=== PATIENT | female | born 1960 | race Caucasian/White ===

== ENCOUNTER → 2020-06-20 13:23 | Outpatient (CLI) | payer OTHER, SELFPAY ==
--- NOTE | ~2020-06-20 | MM_ITS ---
EXAMINATION: MM screening christy BI w jos HISTORY: Screening mammogram, family history of breast cancer in her mother. TECHNIQUE: Craniocaudal and mediolateral oblique 3-D tomosynthesis images were obtained and synthetic 2-D images were generated. CAD analysis was submitted and interpreted. COMPARISON: 08/02/2018, 07/26/2018, 12/06/2016 BREAST PARENCHYMAL COMPOSITION: There are scattered areas of fibroglandular density. FINDINGS: There are multiple stable right breast masses, previously characterized as benign. There is no evidence of suspicious mass, calcification, or architectural distortion to suggest malignancy in either breast. There has been no suspicious interval change. IMPRESSION: 1. No mammographic evidence of malignancy. 2. Recommend routine screening mammography in one year. BI-RADS Category 2: Benign finding(s). Reviewed, dictated and finalized at location A. ER [employer] P[facility]ER
== END ==
PROVIDERS: Visit Provider Obstetrics & Gynecology
DX: Z12.31 Encounter for screening mammogram for malignant neoplasm of breast (principal)
CPT/HCPCS: 77063; 77067

== ENCOUNTER 2021-10-05 00:59 | Day surgery (SDC) | payer OTHER, SELFPAY ==
[2021-10-02 12:14] VITALS: BMI 30.4
[2021-10-05] VITALS (11 sets, daily range): BP systolic 115–165; BP diastolic 58–91; PULSE 66–96; RESP 7–20; TEMP 36.4; O2SAT 91–100; BMI 31.3
--- NOTE | 2021-10-05 08:00 | ECHO_ITS ---
MARINA Report Signed Patient: Katy Meadows MR#: [id number] : 1960 Acct:[id number] Age/Sex: 61 / F ADM Date: 2 Loc: [facility] ER Attending Dr: James Rey MD cc: James Rey MD; [employer] SECURITY CONSULTANT PHYSICIAN~ MARINA TransEsophageal Echocardiogram Date of procedure: 10/05/21 Procedure Type: Multiplanar transesophageal echocardiography with color-flow pulse-wave Doppler Agitated saline study Moderate Sedation Diagnosis: Mitral valve prolapse and mitral regurgitation Indications: Mitral valve prolapse and mitral regurgitation Image Quality: Good Findings: After discussing the risks, benefits and alternatives of the procedure patient agreeable via verbal and written informed consent. Risks discussed included esophageal rupture perforation, sore throat, bleeding, pain, infection, adverse reaction anesthesia. After establishing continuous telemetry monitoring and serial blood pressure assessments and pulse oxygenation, procedure was initiated. Procedure start time 8:41 a.m. Procedure stop time 8:54 a.m. Medications used: Hurricaine spray to the hypopharynx x2. Total 3 mg of Versed and 75 mcg of fentanyl given in divided dosages. Medication were administered and patient was monitored by Madisyn Constantino Complications: None blood loss: None Findings: Normal left ventricular size and function ejection fraction 65%. Normal right ventricular size and function. Normal right atrial size. Mild left atrial enlargement. Atrial septum is intact without agitated saline or color flow evidence of shunting. Left atrial appendage is normal without mass or thrombus velocities of up to 70 centimeters/second. Aortic root is normal in size. No significant atherosclerotic disease. Aortic valve is trileaflet with trivial aortic insufficiency. Tricuspid valve is normal with at most mild tricuspid regurgitation. Pulmonic valve grossly normal. The mitral valve has significant prolapse of the posterior leaflet. Probably P2 although 3D marina would be beneficial for determination. There is significant mitral regurgitation which is likely severe and at least moderate to severe which is highly eccentric which wraps the wall of the left atrium. It is anteriorly directed. There is no pericardial effusion. Conclusions: 1. Normal left ventricular size and function 2. Severe posterior leaflet prolapse with significant mitral regurgitation which is likely severe. 3. Mild left atrial enlargement 4. Intact atrial septum 5. Moderate sedation Recommendations: Patient is completely asymptomatic. She does have significant prolapse of the posterior leaflet. Likely P2 but 3D marina would be of some benefit for determination of which segment. Mitral regurgitation is highly eccentric. It wraps the wall of the left atrium and is directed anteriorly. Will discuss with the patient regarding possible continued observation given asymptomatic status and normal left ventricle function versus referral to valve Clinic for further workup, evaluation and maintenance follow-up. This dictation may have been done utilizing a voice recognition system. Attempts have been made to correct errors. However, there may be uncorrected grammatical, spelling, and recognition errors present. Report Initialized date/time: James Rey MD 10/05/21 / 0857 Electronically signed by: James Rey MD 10/05/21 0904 [facility]
--- NOTE | 2021-10-05 08:24 | WPDMODSED ---
Moderate Sedation Note-Pt Data Patient Data Diagnosis: Mitral regurgitation Present Complaint: Mitral regurgitation Procedure to be performed/Plan: Multiplanar transesophageal echocardiography color pulse-wave Agitated saline study Moderate sedation Allergies Allergy/AdvReac Type Severity Reaction Status Date / Time No Known Allergies Allergy Verified 10/05/21 07:58 Home Medications Medication Instructions Recorded Confirmed Type desvenlafaxine 50 mg 50 mg PO DAILY 07/31/21 10/05/21 History tablet,extended release 24 hr magnesium 250 mg tablet 250 mg PO DAILY 07/31/21 10/05/21 History losartan 25 mg tablet 12.5 mg PO DAILY 10/02/21 10/05/21 History lysine 1,000 mg tablet 1,000 mg PO DAILY PRN canker sore 10/02/21 10/05/21 History Sedation/Anesthesia: No previous sedation/anesthesia problems (including family history). [facility] Family History Family History Mother Breast cancer Grandparent Breast cancer Father Heart disease Social History Social History Smoking status: Never smoker Second hand tobacco smoke exposure: No Alcohol intake: never Substance use: never Substance use type: does not use Living arrangements: with family Additional living arrangements comments: lives with and 3 children Gender identity (if verbalized by the patient): Female Sexual Orientation (if Verbalized by the Patient): Straight or Heterosexual Spiritual care concerns: No Agree to blood products: Yes Mod Sed Physical Exam Physical Exam Pre Procedural Exam: Normal: Appearance, Eyes, Ears, Nose, Neck, Throat, Airway, Lungs, Heart Size, Heart Rate, Heart Rhythm, Neuro Exam, Abdomen, Extremities and Skin Hours since solid foods: 12 Hours since liquid intake: 12 Mallampati Classification: class II Internal Medicine - PN: Obj Da Vital Signs Vital Signs: Vital Signs - 24 hr 10/05/21 08:01 Temperature 36.4 C L Pulse Rate 84 Respiratory Rate 20 Blood Pressure 145/91 H Pulse Oximetry 93 Oxygen Delivery Room Air ASA Classification/Sedation ASA Classification/Sedation ASA Class: II Emergent: No Risks: Risks, benefits and alternatives explained and patient/family accepted plan for sedation. Patient re-evaluated immediately prior to sedation.
--- NOTE | 2021-10-05 08:55 | WPDTEECHO ---
MARINA TransEsophageal Echocardiogram Date of procedure: 10/05/21 Procedure Type: Multiplanar transesophageal echocardiography with color-flow pulse-wave Doppler Agitated saline study Moderate Sedation Diagnosis: Mitral valve prolapse and mitral regurgitation Indications: Mitral valve prolapse and mitral regurgitation Image Quality: Good Findings: After discussing the risks, benefits and alternatives of the procedure patient agreeable via verbal and written informed consent. Risks discussed included esophageal rupture perforation, sore throat, bleeding, pain, infection, adverse reaction anesthesia. After establishing continuous telemetry monitoring and serial blood pressure assessments and pulse oxygenation, procedure was initiated. Procedure start time 8:41 a.m. Procedure stop time 8:54 a.m. Medications used: Hurricaine spray to the hypopharynx x2. Total 3 mg of Versed and 75 mcg of fentanyl given in divided dosages. Medication were administered and patient was monitored by Madisyn Constantino Complications: None blood loss: None Findings: Normal left ventricular size and function ejection fraction 65%. Normal right ventricular size and function. Normal right atrial size. Mild left atrial enlargement. Atrial septum is intact without agitated saline or color flow evidence of shunting. Left atrial appendage is normal without mass or thrombus velocities of up to 70 centimeters/second. Aortic root is normal in size. No significant atherosclerotic disease. Aortic valve is trileaflet with trivial aortic insufficiency. Tricuspid valve is normal with at most mild tricuspid regurgitation. Pulmonic valve grossly normal. The mitral valve has significant prolapse of the posterior leaflet. Probably P2 although 3D marina would be beneficial for determination. There is significant mitral regurgitation which is likely severe and at least moderate to severe which is highly eccentric which wraps the wall of the left atrium. It is anteriorly directed. There is no pericardial effusion. Conclusions: 1. Normal left ventricular size and function 2. Severe posterior leaflet prolapse with significant mitral regurgitation which is likely severe. 3. Mild left atrial enlargement 4. Intact atrial septum 5. Moderate sedation Recommendations: Patient is completely asymptomatic. She does have significant prolapse of the posterior leaflet. Likely P2 but 3D marina would be of some benefit for determination of which segment. Mitral regurgitation is highly eccentric. It wraps the wall of the left atrium and is directed anteriorly. Will discuss with the patient regarding possible continued observation given asymptomatic status and normal left ventricle function versus referral to valve Clinic for further workup, evaluation and maintenance follow-up.
--- NOTE | 2021-10-05 10:02 | SUR.PHASEII ---
Discharge instructions read and handout given to pt and spouse. Pt and spouse states understanding.
== END 2021-10-05 10:18 | disposition home or self-care (01) ==
PROVIDERS: Visit Provider Internal Medicine Cardiovascular Disease
PROC: (CPT 93312; principal; 2021-10-05 08:30)
DX: I34.0 Nonrheumatic mitral (valve) insufficiency (principal); I34.1 Nonrheumatic mitral (valve) prolapse; F41.8 Other specified anxiety disorders; E66.9 Obesity, unspecified; Z68.31 Body mass index [BMI] 31.0-31.9, adult
CPT/HCPCS: 93312; 93320; 93325; A9270; J2250; J3010; J7040

== ENCOUNTER 2022-03-11 16:30 | Outpatient (RCR) | payer OTHER, SELFPAY | END 2022-03-22 18:57 | disposition home or self-care (01) | LOC: ANHCPREHAB 16:30 | PROVIDERS: PCP Family Medicine Adolescent Medicine; Visit Provider Nurse Practitioner Adult Health | DX: Z95.2 Presence of prosthetic heart valve (principal) | CPT/HCPCS: 93798 ==

== ENCOUNTER → 2022-09-09 09:47 | Outpatient (CLI) | payer OTHER, SELFPAY ==
--- NOTE | ~2022-09-09 | MM_ITS ---
EXAMINATION: MM screening christy BI w jos HISTORY: Screening mammogram, family history of breast cancer in her mother and daughter. TECHNIQUE: Craniocaudal and mediolateral oblique 3-D tomosynthesis images were obtained and synthetic 2-D images were generated. CAD analysis was submitted and interpreted. COMPARISON: 06/20/2020, 08/02/2018, 07/26/2018 BREAST PARENCHYMAL COMPOSITION: There are scattered areas of fibroglandular density. FINDINGS: RIGHT BREAST: There is a possible mass in the middle third of the upper outer quadrant of the breast best appreciated 9 cm from the nipple on mediolateral tomosynthesis image 16/77. Asymmetry and areas of mild fat necrosis in the far posterior aspect of the breast are consistent with history of interva l cardiac surgery. LEFT BREAST: No suspicious mass, calcification, or architectural distortion are identified to suggest malignancy. There has been no suspicious interval change. IMPRESSION: 1. Possible right breast mass. 2. Additional mammographic views and possible breast ultrasound are recommended. BI-RADS Category 0: Incomplete: Needs additional imaging evaluation. Reviewed, dictated and finalized at location A. IMPRESSION: 1. Possible right breast mass. 2. Additional mammographic views and possible breast ultrasound are recommended . BI-RADS Category 0: Incomplete: Needs additional imaging evaluation.
== END ==
PROVIDERS: PCP Family Medicine Adolescent Medicine; Visit Provider Nurse Practitioner
DX: Z12.31 Encounter for screening mammogram for malignant neoplasm of breast (principal); R92.8 Other abnormal and inconclusive findings on diagnostic imaging of breast
CPT/HCPCS: 77063; 77067

== ENCOUNTER → 2022-10-05 07:52 | Outpatient (CLI) | payer OTHER, SELFPAY ==
--- NOTE | ~2022-10-05 | MMUS_ITS ---
EXAMINATION: MM diagnostic christy RT w jos, US breast RT limited HISTORY: Possible right breast mass, middle third of upper outer quadrant reported on 09/09/2022 bilat eral screening mammogram TECHNIQUE: Additional 3-D tomosynthesis images of the right breast were performed and synthetic 2-D i mages were generated. CAD analysis was submitted and interpreted. High resolution right subareolar an d upper outer and upper inner quadrant breast ultrasound was performed. COMPARISON: 09/04/2021 bilateral screening mammogram FINDINGS: MAMMOGRAPHIC FINDINGS: There is a circumscribed low-density approximately 5.6 x 8.3 mm opacity in the upper mid right breast , with lobular outline. Approximately 5.2 x 7 mm circumscribed low-density opacity is noted in the right subareolar area. ULTRASOUND: Prominent ducts are noted in the subareolar area. No subareolar cyst suspicious mass or shadowing is evident. At 12:00 4 cm from the nipple corresponding to the mammographic finding is an approximately 5 x 8 mm multi septated cyst, without internal vascularity or posterior shadowing. There is through-transmissi on. IMPRESSION: 1. Benign findings 2. Routine annual mammographic screening is recommended BI-RADS Category 2: Benign finding(s). Reviewed, dictated and finalized at location A. IMPRESSION: 1. Benign findings 2. Routine annual mammographic screening is recommended BI-RADS Category 2: Benign finding(s).
== END ==
PROVIDERS: PCP Family Medicine Adolescent Medicine; Visit Provider Obstetrics & Gynecology Gynecology
DX: R92.8 Other abnormal and inconclusive findings on diagnostic imaging of breast (principal)
CPT/HCPCS: 76642; 77061; 77065; G0279

== ENCOUNTER 2025-03-14 14:23 | Outpatient (CLI) | payer OTHER, SELFPAY ==
--- NOTE | ~2025-03-14 | MM_ITS ---
EXAMINATION: MM screening christy BI w jos HISTORY: Screening TECHNIQUE: Craniocaudal and mediolateral oblique 3-D tomosynthesis images were obtained and synthetic 2-D images were generated. CAD analysis was submitted and interpreted. COMPARISON: Comparison to multiple prior studies sequentially, with oldest reviewed study dated 12/06/2016. BREAST PARENCHYMAL COMPOSITION: Not dense: There are scattered areas of fibroglandular density. FINDINGS: There is a new mass in the lower inner quadrant of the right breast, middle third. The left breast is stable without evidence for malignancy. IMPRESSION: 1. New small right breast mass lower inner quadrant, middle third. 2. Additional mammographic views and possible breast ultrasound are recommended. BI-RADS Category 0: Incomplete: Needs additional imaging evaluation. Reviewed, dictated and finalized at location O. AL AMALGAM PROCESSOR IMPRESSION: 1. New small right breast mass lower inner quadrant, middle third. 2. Additional mammographic views and possible breast ultrasound are recommended . BI-RADS Category 0: Incomplete: Needs additional imaging evaluation.
--- OUTSIDE RECORDS SUMMARY | 2025-03-14 17:31 | XMS_ITS | Clinical Summary ---
Author Organization [facility] [address] Address [address] [place] [address] Care Team Providers Care French Pastry Cook Name Role Phone Anthony Martínez MD Primary Care Prov ider James Rye MD Unavailable [phone] Allergies No known active allergies Medications desvenlafaxine ER (PRISTIQ) 50 mg 24 hr tablet Take 1 tablet (50 mg total) by mouth Active magnesium oxide (MAG-OX) 250 mg (150.8 mg elemental) tabletIndication s:hypomagnesemia Take 1 tablet (250 mg total) by mouth daily Active aspirin 81 mg enteric coated tablet Take 1 tablet (81 mg total) by mouth daily 30 tablet 11 12/23/2021 Active metoprolol tartrate (LOPRESSOR) 50 mg immediate release tabletIndication s:Symptomatic PVCs TAKE 1 TABLET(50 MG) BY MOUTH TWICE DAILY 60 tablet 5 04/02/2024 Active Active Problems Problem Noted Date Diagnosed Date Symptomatic PVCs 02/05/2022 Status post patent foramen ovale closure 022 History of mitral valve repair 02/05/2022 Severe mitral regurgitation 12/18/2021 Palpitations 09/30/2021 Hiatal hernia 09/30/2021 Anxiety 09/30/2021 Class 1 obesity due to exces s calories without serious comorbidity with body mass index (BMI) of 30.0 to 30.9 in adult 09/30/2021 Elevated blood pressure reading 09/30/2021 MVP (mitral valve prolapse) 09/30/2021 Resolved Problems Problem Noted Date Diagnosed Date Resolved Date Severe mitral valve regurgitation 09/30/2021 01/20/2022 Encounters Date Type Department Care Team Description 12/25/[address] [facility] Cardiology [address] [facility] [address] [place] [id number] ProviderMervin MD 12/18/2024 10:30 AM CDT Office Visit [facility] Medical [facility] Cardiology [address] [place] [id number] Rashida Castillo NP Symptomatic PVCs (Primary Dx); Status post patent foramen ovale closure; History of mitral valve repair; Class 1 obesity due to excess calories without serious comorbidity with body mass index (BMI) of 30.0 to 30.9 in adult; Dyslipidemia from Last 3 Months Surgical History Surgery Date Site/Laterality Comments MITRAL VALVE REPLACEMENT 12/18/2021 Mitral Valve Repair, Closure PFO Medical History Medical History Date Comments Eczema Anxiety and depression Hiatal hernia Nonrheumatic mitral valve regurgitation Heart murmur Hypertension Family History Medical History Relation Name Comments Heart attack Father Cancer Mother Relation Name Status Comments Father Mother Social History Tobacco Use Types Packs/Day Years Used Date Smoking Tobacco: Never Smokeless Tobacco: Never Tobacco Cessation:Counseling Given: Not Answered Social Connection and Isolation Panel Answer Date Recorded In a typical week, how many times do you talk on the phone with family, friends, or neighbors? More than three times a week 12/21/2021 How often do you get togethe r with friends or relatives? More than three times a week 12/21/2021 How often do you attend [facility] or hoahaoism services? 1 to 4 times per year 12/21/2021 Do you belong to any clubs o r organizations such as denominational groups, unions, fraternal or athletic groups, or school groups? Yes 12/21/2021 How often do you attend meet ings of the clubs or organizations you belong to? 1 to 4 times per year 12/21/2021 Are you , , di vorced, , never , or living with a partner? 12/21/2021 AUDIT-C Answer Date Recorded Q1: How often do you have a drink containing alcohol? Never 12/18/2021 Q2: How many drinks containi ng alcohol do you have on a typical day when you are drinking? Patient does not drink Frequency of Binge Drinking Not on file 11/24 Overall Financial Resource Strain (CARDIA) Answe r Date Recorded How hard is it for you to pa y for the very basics like food, housing, medical care, and heating? Not very hard 12/21/2021 Hunger Vital Sign Answer Date Recorded Within the past 12 months, y ou worried that your food would run out before you got the money to buy more. Never true 12/22/19 22 Within the past 12 months, t he food you bought just didn't last and you didn't have money to get more. Never true 12/21/2021 PRAPARE - Transportation Answer Date Re corded In the past 12 months, has l ack of transportation kept you from medical appointments or from getting medications? No 11/24 In the past 12 months, has l ack of transportation kept you from meetings, work, or from getting things needed for daily living? No 12/21/2021 Comments No Sex and Gender Information Value Date Recorded Sex Assigned at Not on file Legal Sex Female 11:34 AM [employer] Gender Identity Not on file Sexual Orientation Not on file Last Filed Vital Signs Vital Sign Reading Time Taken Comments Blood Pressure 130/70 12/18/2024 9:55 AM CDT Pulse 86 12/18/2024 9:55 AM CDT Temperature 36.3 C (97.4 F) 01/20/2022 3:04 PM CDT Respiratory Rate 20 01/20/2022 3:04 PM CDT Oxygen Saturation 98% 12/18/2024 9:55 AM CDT Inhaled Oxygen Concentration - - Weight 85 kg (187 lb 6.4 oz) 12/18/2024 9:55 AM CDT Height 165.1 cm (5' 5) 12/18/2024 9:55 AM CDT Body Mass Index 31.18 12/18/2024 9:55 AM CDT Plan of Treatment Health Maintenance Due Date Last Done Comments Breast Cancer Screening-Mammogram 1960 Cervical Cancer Screening 1960 Colon Cancer Screening-Colonoscopy 1960 Depression Screening 1960 Hepatitis C Screening 1960 Hepatitis B Screening 1980 Regular Well Visit/Exam 18-64 1980 Zoster Vaccine (1 of 2) 2012 Covid-19 Vaccine (4 - 2024-2 6 season) 2024 03/30/2021, 08/14/2020, 07/24/2020 Influenza Vaccine (#1) 2024 04/27/2018 DTaP/Tdap/Td Vaccine (2 - Td or Tdap) 08/01/2031 07/31/2021 Pneumococcal vaccine <65 Aged Out No longer eligible based on patient's age to complete this topic Medical Devices Implanted Type Area Pattern Molder Device Identifier Shelf Expiration Date Model / Serial / Lot [employer] Simulus 26mm Semirigid Band Annuloplasty 800sc-26 - [id number] - [id number] Implanted:Qty: 1 on 12/18/2021 by Gabriele Redman MD at [facility] Other - see comments N/A: Mitral Valve [employer] 06/04/2026 800SC-26 / [id number] / [id number] Description:Annuloplasty ban d Insurance [employer] ACCESS [employer] OPEN ACCESS Domain [employer] OPEN ACCESS Domain [employer] OPEN ACCESS Advance Directives For more information, please contact: [phone] * Full Code (Latest Code Status on File) Date Activated Date Inactivated Comments 12/18/2021 2:52 PM 12/22/2021 4:50 PM Care Teams French Pastry Cook Relationship Specialty Start Date End Date Anthony Martínez MD PCP - General Family Medicine 08/11/21 James Rey MD [address] [place] [address] Referring Physician Cardiology 10/21/21
== END 2025-03-14 14:24 | disposition home or self-care (01) ==
LOC: CHSIMG 14:25
PROVIDERS: PCP Family Medicine Adolescent Medicine; Visit Provider Family Medicine Adolescent Medicine
DX: Z12.31 Encounter for screening mammogram for malignant neoplasm of breast (principal); R92.8 Other abnormal and inconclusive findings on diagnostic imaging of breast
CPT/HCPCS: 77063; 77067

== ENCOUNTER 2025-04-19 09:08 | Outpatient (CLI) | payer OTHER, SELFPAY ==
--- NOTE | ~2025-04-19 | MMUS_ITS ---
EXAMINATION: MM diagnostic christy RT w jos, US breast RT limited HISTORY: Additional imaging TECHNIQUE: Craniocaudal and mediolateral oblique 3-D tomosynthesis images were obtained and synthetic 2-D images were generated. CAD analysis was submitted and interpreted. Grayscale sonography over the area(s) of interest with color Doppler if there is a finding. COMPARISON: March 14 BREAST PARENCHYMAL COMPOSITION: Not Dense: There are scattered areas of fibroglandular tissue MAMMOGRAM FINDINGS: A tiny, circumscribed mass persists at approximately 3:00 in the mid depth. There are no suspicious calcifications. No unexplained architectural distortion is seen. There are no skin or nipple abnormalities identified. There is no adenopathy seen on the images submitted. ULTRASOUND FINDINGS: Sonography through the 3:00 right breast demonstrates a tiny cyst with a maximum dimension of 4 mm. This accounts for the tiny, circumscribed, mammographic mass. IMPRESSION: No mammographic or sonographic evidence to suggest malignancy is seen. The patient may return to screening mammography as per ACR guidelines. BI-RADS 2 - Benign. Reviewed, dictated and finalized at location A. [employer] IMPRESSION: No mammographic or sonographic evidence to suggest malignancy is seen. The hailee ent may return to screening mammography as per ACR guidelines. BI-RADS 2 - Benign.
== END 2025-04-19 09:09 | disposition home or self-care (01) ==
LOC: MICIMG 09:08
PROVIDERS: PCP Family Medicine Adolescent Medicine; Visit Provider Family Medicine Adolescent Medicine
DX: R92.8 Other abnormal and inconclusive findings on diagnostic imaging of breast (principal)
CPT/HCPCS: 76642; 77061; 77065; G0279